=== PATIENT | female | born 1990 | race Asian ===

== ENCOUNTER 2018-02-04 08:01 | Emergency (ER) | payer OTHER ==
[~2018-02-04] VITALS: Ht 172.7 cm; Wt 63.0 kg
[2018-02-04 08:07] VITALS: BP 101/61; Ht 172.7 cm; Wt 63.0 kg
== END 2018-02-04 09:42 | disposition home or self-care (01) ==
LOC: ED 08:01
DX: N64.4 Mastodynia (principal); R51 Headache; R50.9 Fever, unspecified